=== PATIENT | female | born 1945 | race Hispanic/Latino ===

== ENCOUNTER 2017-04-10 22:05 | Emergency (ER) | payer MEDICARE ==
[~2017-04-10] VITALS: Ht 152.4 cm; Wt 75.0 kg
[~2017-04-10 22:05] MED LIST: COU5; HCTZ1TAB; Lovenox; OMPR20CCR
[2017-04-10 22:09] VITALS: BP 140/83; PULSE 70; RESP 18; O2SAT 100
--- NOTE | 2017-04-10 22:15 | ED.REPORT ---
HPI-Trauma Minor / Fall Date of Service Apr 10, 2017 ED Provider: Agustín Wu DO Pt is a 71 year old female with a history of HTN who presents to the ED complaining of headache after a ground level fall today. She denies dizziness, and any other symptoms or pain. She reports that she slipped and hit her head. Pt is currently taking warfarin. The pt's family reports that she has a DVT in her right leg. Nursing Notes Stated Complaint: GLF Chief Complaint: Multiple Trauma/Fall Nursing Notes Reviewed: Yes Allergies: Coded Allergies: No Known Allergies (Verified , 04/10/17) Miscellaneous Medications ([Lovenox]) Hctz/Spirono-Expunged Drug, Do Not Renew! (Aldactazide 25/25-Expunged Drug, Do Not Renew) 1 Tab Tablet Omeprazole-Expunged Drug, Do Not Renew! (Omeprazole-Expunged Drug, Do Not Renew! ) 20 Mg Capsule. Warfarin Inactive Drug Do Not Use (Coumadin Inactive Drug Do Not Use) 5 Mg Tablet General Time Seen by MD: 22:15 Chief Complaint Head pain Hx Obtained From: Patient Arrived By: Walk-in Onset Occurred: Just prior to arrival Symptom Duration: Since onset Caused by: Accidental, Fall on ground Location: Head Quality: Painful Severity: Current: Moderate Severity: Maximum: Moderate Recent Healthcare: No recent doctor visit, No recent hospitalization Similar Sx Previous: No Past Medical History Past Medical History Notes: PCP - Dr. Berny Guzman Past Medical History Nephrolithiasis Arthritis DVT in right leg Reports: Hypertension Reports: Urinary tract infection Past Surgical History None reported Smoking History Unknown if Ever Smoker Social History Alcohol Use: Denies alcohol use Drug Use: Denies drug use Other Social History: Good social support Ambulatory Status Independent Review of Systems Musculoskeletal: Denies: Extremity pain Neurologic: Reports: Headache Complete sys rev & neg: except as marked. Cardiovascular: Denies: Chest pain GI: Denies: Abdominal pain Physical Exam Initial Vital Signs Vital Signs (First) Date Time Temp Pulse Resp B/P Pulse Ox O2 Delivery O2 Flow Rate FiO2 04/10/17 22:09 37.1 70 18 140/83 100 Room Air Initial VS: Reviewed Head / Eyes: Atraumatic, Normocephalic Respiratory: Breath sounds normal, Clear to auscultation, No respiratory distress Cardiovascular: Regular rate & rhythm, Heart sounds normal, Intact distal pulses Abdomen / GI: Soft, Non-tender Extremities: Vascular intact, Neuro intact Skin: Warm, Dry, No cyanosis Neurologic: Alert, Oriented, Nonfocal Psychiatric: Mood/affect normal, Behavior normal General/Constitutional: Awake, Alert Neck: Atraumatic, Full range of motion Lower Extremity / Pelvis / MS: Neurologic intact, Vascular intact DVT in right leg that is red, erythematous and swollen Interpretation & Diagnostics Lab Results Interpretation Result Diagram: 04/10/176 04/10/17 2226 Test 04/10/17 22:26 White Blood Count 5.7th/mm3 (3.8-10.1) Red Blood Count 4.32mil/mm3 (3.90-5.20) Hemoglobin 9.9g/dL (12.0-15.6) Hematocrit 32.1% (35.0-46.0) Mean Corpuscular Volume 74.3fL (81-100) Mean Corpuscular Hemoglobin 22.9pg (27.0-35.0) Mean Corpuscular Hemoglobin Concent 30.8% (32.0-37.0) Red Cell Distribution Width 15.0% (12.3-15.4) Platelet Count 331bil/L (150-400) Neutrophils (%) (Auto) 59.1% (40-74) Lymphocytes (%) (Auto) 23.0% (14-46) Monocytes (%) (Auto) 11.3% (4-12) Eosinophils (%) (Auto) 5.4% (0-5) Basophils (%) (Auto) 1.0% (0-3) Prothrombin Time 16.1sec (8.1-12.5) Prothromb Time International Ratio 1.49ratio Sodium Level 137mEq/L (134-144) Potassium Level 4.0mEq/L (3.5-5.2) Chloride Level 101mEq/L (97-108) Carbon Dioxide Level 24mmol/L (18-29) Blood Urea Nitrogen 13mg/dL (8-27) Creatinine 0.50mg/dL (0.57-1.00) Estimat Glomerular Filtration Rate 175mL/min (>59) Glucose Level 118mg/dL (60-99) Calcium Level 9.3mg/dL (8.5-10.1) Total Bilirubin 0.2mg/dL (0.0-1.2) Aspartate Amino Transf (AST/SGOT) 17U/L (0-50) Alanine Aminotransferase (ALT/SGPT) 30U/L (0-32) Alkaline Phosphatase 120U/L (25-165) Total Protein 6.2g/dL (6.4-8.4) Albumin 3.4g/dL (3.4-5.0) Hold Paz Top Tube Received (Received) CT Head Interpretation CONCLUSION: No acute intracranial abnormality. Transmitted to the ED at 23:00 by Stella Galicia M.D. Study: Head CT no contrast Interpretation / Wet Read by: Interpret - Radiologist Re-Eval/Medical Decision Med Decision/Clinical Course Ground-level fall with head injury and no loss of consciousness. [place] Coma Scale of 15. She is taking Lovenox and warfarin for newly diagnosed I take back and recently diagnosed DVT. Her INR is less than 2. Of course she is on the Lovenox we CT her brain. This look good. Labs are reassuring. She is to continue with her warfarin starting tomorrow. Continue with the Lovenox as well. Follow-up with Dr. Garcia's as scheduled on Friday. Family will wake her every 4 hours bring her back if any problems. At discharge she had normal vitals and a normal Con[place]us Coma Scale and no headache. Source of Hx: Old records Re-Evaluation/Progress : Time of Eval: 23:54 Re-Evaluation/Progress Note: Pt rechecked. Informed pt of results and plan for discharge. Pt understands and agrees with plan for discharge. F/U instructions and RTER warnings given. All questions addressed. Counseled Regarding: Diagnosis, Lab results, Need for follow-up, When/why to return to ED Discharge & Departure Impression: Primary Impression: Head injury Encounter type: initial encounter Qualified Code: S09.90XA - Unspecified injury of head, initial encounter Additional Impression: On warfarin at home Disposition: Home Discharge Condition All VS Reviewed: Yes Condition: Stable Patient Instructions: Head Injury (ED), Warfarin (By mouth) Additional Instructions: Your INR is less than 1.49. Your CT scan was normal. Continue taking your Lovenox and Coumadin as prescribed until told otherwise by Dr. Guzman. You will need to have your INR rechecked in 48 hours. Wake her every 4 hours for the next 12 hours and talk to her. If she seems confused or has any abnormalities, return to the emergency department. Keep your follow up appointment on Friday. Return to the Emergency Department for any new or concerning symptoms or if she falls and hits her head. GOOGLE El INR es inferior a 1.49. La TC fue normal. Contine tomando interiano Lovenox y Coumadin preescrita hasta Dr. uGzman dijo lo contrario. Usted necesitar tener interiano INR revisar en 48 horas. Despertarla cada 4 horas stewart las siguientes 12 horas y hablar con robert. Si robert parece confundida o tiene cualquier anormalidad, volver al servicio de urgencias. Mantener el seguimiento de la susan el lun. Volver a Departamento de la emergencia para cualquier nuevo o en cuanto a los s ntomas o si y golpea interiano josie. Referrals: Berny Guzman MDibe Attestation Portions of this note were transcribed by Na Johnson. I, Dr. Wu personally performed the history, physical exam and medical decision-making; I reviewed and confirmed the accuracy of the information in the transcribed note. Signed by : Radha Anthony, 04/10/17. copies to: Berny Guzman MD, Todd P DO Apr 10, 2017 22:15 Na Staton Apr 10, 2017 23:34
[2017-04-10 22:36] LABS: EOSINOPHILS % (AUTO) 5.4 % (0-5); MONOCYTES % (AUTO) 11.3 % (4-12); Mean Corpuscular Hemoglobin 22.9 pg (27.0-35.0); Mean Corpuscular Volume 74.3 fL (81-100); NEUTROPHILS % (AUTO) 59.1 % (40-74); Platelet Count 331 bil/L (150-400)
[2017-04-10 23:04] LABS: INR 1.49 ratio
[2017-04-11 00:49] VITALS: BP 121/58; PULSE 72; RESP 16; O2SAT 96
--- NOTE | 2017-04-11 07:17 | DRSVH ---
PROCEDURE: CT BRAIN WITHOUT CONTRAST ([id number]) INDICATIONS: HEAD INJURY, WARFARIN USE TECHNIQUE: Noncontrast 4.5 mm thick angled axial sections acquired from the foramen magnum to the vertex, with c oronal reformats. COMPARISON: [facility], CT, ABD/PELVIS W/CON (PNL), 05/12/2008, 16:02. FINDINGS: Image quality: Excellent. CSF spaces: Basal cisterns are patent. No extra-axial fluid collections. Ventricles are normal in size and shape. Brain: No midline shift. No intracranial masses or hemorrhage. Park-white matter interface is norm al. Skull and face: Calvarium and visualized facial bones are intact, without suspicious lesions. Sinuses: Visualized sinuses and mastoids are clear. IMPRESSION: 1. No CT evidence of acute intracranial pathology. 2. There are no discrepancies with the preliminary report. Dictated by: John Sanders M.D. on 04/11/2017 at 7:13 Approved by: John Sanders M.D. on 04/11/2017 at 7:15
== END 2017-04-11 00:48 | disposition home or self-care (01) ==
LOC: SED 22:05
DX: S09.8XXA Other specified injuries of head, initial encounter (principal); W01.10XA Fall on same level from slipping, tripping and stumbling with subsequent striking against unspecified object, initial encounter; Y93.89 Activity, other specified; Y92.89 Other specified places as the place of occurrence of the external cause; Y99.8 Other external cause status; I82.401 Acute embolism and thrombosis of unspecified deep veins of right lower extremity; I10 Essential (primary) hypertension; Z79.01 Long term (current) use of anticoagulants; Z87.440 Personal history of urinary (tract) infections; Z87.442 Personal history of urinary calculi